=== PATIENT | male | born 1965 | race African-American/Black ===

== ENCOUNTER 2024-02-28 22:30 | Emergency (ER) | payer OTHER ==
[~2024-02-28] VITALS: Ht 180.3 cm; Wt 77.1 kg
[2024-02-28 23:27] LABS: BASOPHILS % (AUTO) 0.9 % (0.0-2.0); EOSINOPHILS % (AUTO) 0.9 % (0.0-7.0); HEMATOCRIT 45.6 % (36.7-47.1); HEMOGLOBIN 14.7 g/dL (12.5-16.3); LYMPHOCYTES # (AUTO) 1.4 K/uL (0.8-4.8); LYMPHOCYTES % (AUTO) 39.8 % (20.5-51.5); MEAN CORPUSCULAR HEMOGLOBIN 29.3 uug (23.8-33.4); MEAN CORPUSCULAR HGB CONC 32 g/dL (32.5-36.3); MEAN CORPUSCULAR VOLUME 91.1 fL (73.0-96.2); MONOCYTES # (AUTO) 0.5 K/uL (0.1-1.30); MONOCYTES % (AUTO) 13.7 % (0.0-11.0); NEUTROPHILS # (AUTO) 1.6 K/uL (1.8-8.9); NEUTROPHILS % (AUTO) 44.7 % (38.5-71.5); PLATELET COUNT (AUTO) 232 K/uL (152-348); RED BLOOD CELL COUNT(AUTO) 5.01 MIL/uL (4.06-5.63); RED CELL DISTRIBUTION WIDTH 13.9 % (12.1-16.2); WHITE BLOOD COUNT (AUTO) 3.5 K/uL (3.6-10.2)
[2024-02-28 23:50] LABS: DIFFERENTIAL COMMENT 1
[2024-02-29 00:08] LABS: CALCIUM 9.4 mg/dL (8.5-10.1); CARBON DIOXIDE 28 mmol/L (21-32); CHLORIDE 107 mmol/L (98-107); CREATININE 1.3 mg/dL (0.6-1.3); ETHANOL < 3 MG/DL (0-10); GLUCOSE 94 mg/dL (74-106); POTASSIUM 3.5 mmol/L (3.5-5.1); SODIUM SERUM 146 mmol/L (136-145); UREA NITROGEN, BLOOD 13 mg/dL (7-18)
[2024-02-29 00:17] LABS: ALANINE AMINOTRANSFERASE 10 U/L (16-63); ALBUMIN 4.2 g/dL (3.4-5.0); ALKALINE PHOSPHATASE 65 U/L (50-136); ASPARTATE AMINOTRANSFERASE < 5 U/L (15-37); BILIRUBIN,DIRECT 0.2 mg/dL (0.0-0.2); BILIRUBIN,TOTAL 0.7 mg/dL (0.2-1.0); TOTAL PROTEIN, SERUM 7.7 g/dL (6.4-8.2)
[2024-02-29 00:18] LABS: AMMONIA < 10 umol/L (11-32)
[2024-02-29 00:19] LABS: ACETAMINOPHEN < 10.0 ug/mL (10-30)
[2024-02-29] MEDS ORDERED: IV NS 1000 ML 1,000 ML IV SCH (00:45)
[2024-02-29] MEDS ORDERED: hydrALAZINE HCL 20 MG/1 ML VIAL IV PRN (00:45)
[2024-02-29] MEDS ORDERED: MORPHINE SULFATE 2 MG/1 ML DISP.SYRIN IVP PRN (00:45)
[2024-02-29] MEDS ORDERED: ACETAMINOPHEN 325 MG TABLET PO PRN (00:45)
[2024-02-29] MEDS ORDERED: ONDANSETRON 4 MG/2 ML VIAL IV PRN (00:45)
[2024-02-29 06:15] VITALS: O2SAT 99
[2024-02-29] MEDS ORDERED: HEPARIN SODIUM,PORCINE 5,000 UNITS/ML VIAL SQ SCH (09:00)
[2024-02-29] MEDS ORDERED: DOCUSATE SODIUM 100 MG CAPSULE PO SCH (09:00)
== END 2024-02-29 06:53 | disposition short-term general hospital (02) ==
LOC: ER 23:30
DX: R41.82 Altered mental status, unspecified (principal); R06.02 Shortness of breath; Z59.00 Homelessness unspecified; Z88.0 Allergy status to penicillin
CPT/HCPCS: 36415; 70450; 71045; 84484; 85025; 85730; 93005; A4606; A4663; G0480